=== PATIENT | male | born 1975 | race Hispanic/Latino ===

== ENCOUNTER 2017-07-22 18:15 | Emergency (ER) | payer OTHER, BC ==
[2017-07-22 18:37] VITALS: PULSE 127; RESP 20; TEMP 98.2; O2SAT 97
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
[2017-07-22 19:19] VITALS: BP 138/88
--- NOTE | 2017-07-24 21:15 | CARD ---
APPROVED REPORT EKG Measurement Heart [id number] MI [id number] <Conclusion> Sinus tachycardia Otherwise normal ECG
== END 2017-07-22 19:40 | disposition home or self-care (01) ==
LOC: ED 18:15
DX: F43.0 Acute stress reaction (principal)